=== PATIENT | female | born 1995 | race Caucasian/White ===

== ENCOUNTER 2024-04-21 12:35 | Emergency (ER) | payer MEDICAID, SELFPAY ==
[2024-04-21] MEDS ORDERED: Acetaminophen 325 MG TAB ONE (12:59)
== END 2024-04-21 13:44 | disposition home or self-care (01) ==
LOC: NAV ERS 12:35
DX: S00.93XA Contusion of unspecified part of head, initial encounter (principal); F17.210 Nicotine dependence, cigarettes, uncomplicated; Y04.8XXA Assault by other bodily force, initial encounter
CPT/HCPCS: 70450